=== PATIENT | female | born 1980 | race Caucasian/White ===

== ENCOUNTER 2017-02-22 10:00 | Emergency (ER) | payer OTHER ==
--- NOTE | ~2017-02-22 | ER ---
PATIENT'S NAME: LING FITCH [facility] AGE: 36 Y [address] ROOM: [place] [address] LOCATION: [facility] ADMIT DATE: 02/22/2017 ER/Outpatient Report DISCHARGE DATE: 02/22/2017 FAMILY PHYSICIAN: PHYSICIAN, LUCA ATTENDING PHYSICIAN: Primo Baca CHIEF COMPLAINT: Left-sided weakness, nausea, and dizziness. HISTORY OF PRESENT ILLNESS: Ms. Fitch presents for evaluation of symptoms that started yesterday morning at 7:15 a.m. The symptoms are described as left-sided numbness, left- sided weakness, dizziness/unsteadiness, and headache. The headache and most of the dizziness have resolved. She still feels like she does not feel completely normal on her left side. She did endorse a rapid onset of symptoms yesterday morning with slow resolution. She presented to clinic this morning for evaluation, and she was referred here for further evaluation. She denies any speech deficits or facial asymmetry. No focal weakness. She just does not feel right. She also states that she feels very funny when she is walking but cannot really describe in other detail what exactly is going on. PAST MEDICAL HISTORY: Documented on the record and reviewed by me. SOCIAL HISTORY: Documented on the record and reviewed by me. MEDICATIONS: Documented on the record and reviewed by me. ALLERGIES: DOCUMENTED ON THE RECORD AND REVIEWED BY ME. REVIEW OF SYSTEMS: All systems reviewed and negative except as noted in the HPI. PHYSICAL EXAMINATION: VITAL SIGNS: Blood pressure 138/98, pulse 77, respiratory rate is 20, temperature 97.3, SpO2 is 98% on room air. Pain is rated 5/10. GENERAL: An age-appropriate female, upright on the exam table, in no apparent pain or distress. NEUROLOGIC: Awake and alert. GCS is 15. There are no focal deficits. No asymmetry on exam. The patient has no nystagmus. Extraocular movements are intact. Visual elizabeth grossly intact. The patient has normal dexterity in both hands. No difficulty with past pointing or rapid alternating movements. PATIENT'S NAME: LING FITCH [facility] AGE: 36 Y [address] ROOM: [place] [address] LOCATION: [facility] ADMIT DATE: 02/22/2017 ER/Outpatient Report DISCHARGE DATE: 02/22/2017 FAMILY PHYSICIAN: PHYSICIAN, NO ATTENDING PHYSICIAN: Primo Baca No dysmetria. The patient has no weakness in the upper or lower extremities as testable. No cranial nerve deficits. The patient has a negative Romberg's test. She did stumble significantly once with tandem gait but otherwise is able to walk without any difficulty. HEENT: Normocephalic, atraumatic. Eyes are PERRL. Oropharynx is clear. NECK: Supple. Trachea is midline. CHEST/HEART: Regular rate and rhythm with no murmurs. LUNGS: Clear to auscultation bilaterally with no rhonchi, wheezes, or rales. ABDOMEN: Soft, nontender, and nondistended. BACK: Normal to inspection and palpation. No CVA or spinal tenderness. EXTREMITIES: Warm and well perfused with no deformities or edema. SKIN: Clean, dry, intact. No obvious rashes. LABORATORY DATA AND X-RAYS: Head MRI was obtained with no acute findings per Radiology. Chest x-ray is unremarkable per my read. No masses or infiltrates. No pneumothorax. Urinalysis with no infection. CMS with no appreciable electrolyte abnormalities. No renal abnormalities. No hepatobiliary abnormalities. Phosphorus is 2.9, magnesium 2.3. CRP 0.72. HCG is undetectable. CBC with no appreciable abnormalities. Serum lactate is 1.0. Vitamin B12 level is 437. IMPRESSION: 1. Paresthesias. 2. Dizziness. 3. Enlarged pituitary. EMERGENCY DEPARTMENT COURSE: The patient was seen and evaluated as above. No evidence of stroke on imaging. The patient incidentally was found to have an enlarged pituitary. Her thyroid studies were within normal limits. No other evidence of endocrine dysfunction at this time. No hemianopia or other evidence of optic nerve involvement. At this time, I do not believe the patient has an emergency medical condition. I will have her follow up with Dr. Mora, whom I spoke with over the phone prior to the patient's discharge. She needs to follow up with him today by calling the office. He will see what he needs to do to evaluate the incidental enlarged pituitary and her symptoms moving forward. All questions were answered, and the patient was discharged in good condition. MD ZE HOUSER/kia PATIENT'S NAME: LING FITCH [facility] AGE: 36 Y [address] ROOM: [place] [address] LOCATION: [facility] ADMIT DATE: 02/22/2017 ER/Outpatient Report DISCHARGE DATE: 02/22/2017 FAMILY PHYSICIAN: LUCA PARNELL ATTENDING PHYSICIAN: Primo Baca /[id number] d: 02/22/17 2210 t: 02/28/17 0639, OUTPATIENT REPORT
[2017-02-22 10:46] LABS: BASOPHIL # 0.1 K/uL (0.0-0.2); BASOPHIL % 0.6 %; EOSINOPHIL % 0.5 %; HEMATOCRIT 39.3 % (33.0-46.0); HEMOGLOBIN 13.6 g/dL (11.0-15.0); IMMATURE GRANULOCYTE % 0.3 %; LYMPHOCYTE # 2.4 K/uL (0.8-4.0); LYMPHOCYTE % 30.5 %; MCHC 34.6 gm/dL (32.0-36.5); MCV 86.8 fl (83.0-98.0); MONOCYTE # 0.6 K/uL (0.0-1.0); MONOCYTE % 7.5 %; MPV 9.1 fl (9.4-12.4); NEUTROPHIL # (ANC) 4.8 K/uL (1.8-7.8); NEUTROPHIL % 60.6 %; NRBC % 0 /100WBC (0-0.00); PLATELET COUNT 336 K/uL (150-450); RBC 4.53 M/uL (3.50-5.50); RDW-CV 13.2 % (11.9-14.6); WBC 7.9 K/uL (4.0-11.0)
[2017-02-22 11:17] LABS: ALBUMIN 3.9 gm/dL (3.5-5.0); ALK PHOS 87 IU/L (33-138); ALT 19 IU/L (12-78); ANION GAP 8.6 (10.0-19.0); AST 14 IU/L (10-40); BLOOD UREA NITROGEN 12 mg/dL (6-24); CALCIUM 8.7 mg/dL (8.5-10.5); CHLORIDE 106 mMol/L (96-110); CO2 27 mMol/L (22-32); CREATININE 0.7 mg/dL (0.5-1.1); MAGNESIUM 2.3 mg/dL (1.8-2.6); PHOSPHORUS 2.9 mg/dL (2.5-4.9); POTASSIUM 3.6 mMol/L (3.7-5.1); SODIUM 138 mMol/L (135-145); TOTAL BILIRUBIN 0.3 mg/dL (0.0-1.5); TOTAL PROTEIN 8.3 g/dL (6.0-8.4)
[2017-02-22 11:37] LABS: BILIRUBIN URINE NEGATIVE (NEGATIVE); BLOOD URINE NEGATIVE /UL (NEGATIVE); COLOR URINE YELLOW (YELLOW); GLUCOSE URINE NEGATIVE (NEGATIVE); KETONE URINE NEGATIVE (NEGATIVE); LEUKOCYTES URINE NEGATIVE /UL (NEGATIVE); NITRITE URINE NEGATIVE (NEGATIVE); PROTEIN URINE NEGATIVE (NEGATIVE); TURBIDITY URINE CLEAR (CLEAR); UROBILINOGEN URINE NORMAL (NORMAL)
== END 2017-02-22 12:01 | disposition disaster alternative care site (69) ==
LOC: GMED 10:00
PROVIDERS: Emergency Medicine
DX: E23.6 Other disorders of pituitary gland (principal); R42 Dizziness and giddiness; R20.2 Paresthesia of skin